=== PATIENT | female | born 1965 | race Two or more races ===

== ENCOUNTER 2024-08-08 05:33 | Day surgery (SDC) | payer OTHER ==
[2024-08-01 10:16] VITALS: BP 156/90
[2024-08-01 10:59] LABS: URINE APPEARANCE Clear; URINE BILIRRUBIN Negative (NEGATIVE); URINE BLOOD Negative; URINE COLOR Yellow; URINE GLUCOSE Negative (NEGATIVE); URINE KETONE Negative (NEGATIVE); URINE LEUKOCYTE Negative; URINE NITRATE Negative; URINE PROTEIN Trace (NEGATIVE); URINE UROBILINOGEN 0.2 E.U./dl
[2024-08-01 11:01] LABS: HEMATOCRIT 40.6 % (36.0-45.00); MEAN CELL VOLUME 90.1 fL (80.00-100.00); MEAN CORPUSCULAR HGB CONC 34.4 g/dl (32.0-36.0); PLATELET COUNT 190 K/uL (150-450); RED BLOOD COUNT 4.51 M/uL (4.00-6.00); RED CELL DISTRIBUTION WIDTH 14.2 % (11.5-14.5)
[2024-08-01 11:04] LABS: URINE EPITHELIAL CELLS 19.7 uL (0.0-38.8); URINE WBC 5.8 uL (0.0-23.2)
[2024-08-01 11:20] LABS: URINE CAST 0.76 uL (0.0-1.40); URINE RBC 1.2 uL (0.0-20.8)
[2024-08-01 11:26] LABS: PARTIAL THROMBOPLASTIN TIME 28.7 SECONDS (22.0-34.0); PROTHROMBIN TIME 10.9 SECONDS (9.0-11.5)
[2024-08-01 11:53] LABS: BILIRUBIN TOTAL 0.55 mg/dL (0.3-1.2); CALCIUM 10.4 mg/dL (8.5-10.1); CREATININE SERUM 0.79 mg/dL (0.55-1.02); GFR 74.49; POTASSIUM 4.66 mEq/L (3.5-5.1)
[~2024-08-08] VITALS: Ht 162.6 cm; Wt 81.6 kg
[~2024-08-08 05:33] MED LIST: AMLODIPINE BESY10 MG PO; CARVEDILOL25 MG; DEPAKOTE ER500 MG PO; PROAIR RESPICL90 MCG IH; SEROQUEL25 MG PO
[2024-08-08] MEDS ORDERED: PIPERACILLIN/TAZOBACTAM SODIUM 3.375 GM VIAL IV ONE ×2 (12:30→14:15)
[2024-08-08] MEDS ORDERED: DIBUCAINE 15 GM OINT..GM. TUBE RECTAL ONE (12:30)
[2024-08-08] MEDS ORDERED: HEMOSTATIC MATRIX 1 KIT KIT TOP ONE (12:30)
[2024-08-08] MEDS ORDERED: BUPIVACAINE HCL 30 ML VIAL IJ ONE (12:30)
[2024-08-08] MEDS ORDERED: LIDOCAINE HCL 1%/EPINEPHRINE 20ML VIAL IJ ONE (12:30)
[2024-08-08] MEDS ORDERED: POVIDONE-IODINE 118 ML BOTT TOP ONE (12:30)
[2024-08-08] MEDS ORDERED: MORPHINE SULFATE 4 MG/ML VIAL IV ONE (16:20)
== END 2024-08-08 16:55 | disposition home or self-care (01) ==
LOC: CIR.AMB 05:33
PROVIDERS: ATTEND Colon & Rectal Surgery
DX: K60.1 Chronic anal fissure (principal); K92.2 Gastrointestinal hemorrhage, unspecified; K62.4 Stenosis of anus and rectum; I10 Essential (primary) hypertension; J45.909 Unspecified asthma, uncomplicated; G40.909 Epilepsy, unspecified, not intractable, without status epilepticus

== ENCOUNTER → 2025-09-05 | Day surgery (SDC) | payer OTHER ==
[~2025-09-05] MED LIST changes: +BUPIVACAINE HCL/MPF 0.5% 30ML VIAL ONE; +CEFTRIAXONE SODIUM 2,000 MG VIAL ONE; +DIBUCAINE 30 GM TUBE ONE; +EFFEXOR XR37.5 MG PO; +HEMOSTATIC MATRIX 1 KIT KIT TOP ONE; +LEVOTHYROXINE25 MCG PO; +LIDOCAINE HCL 1%/EPINEPHRINE 20ML VIAL IJ ONE; +METRONIDAZOLE/SODIUM CHLORIDE 500 MG/100 ML PIGGYBACK IV ONE; +OMEPRAZOLE-BIC1 EAC1 PO; +PEPCID AC20 MG PO; +POVIDONE-IODINE SCRUB 118 ML BOTT TOP ONE
== END | disposition home or self-care (01) ==
LOC: ADM 08-29 11:45 → CIR.AMB 07:00
PROVIDERS: ATTEND Colon & Rectal Surgery
DX: C7A.026 Malignant carcinoid tumor of the rectum (principal); C7A.1 Malignant poorly differentiated neuroendocrine tumors; K64.2 Third degree hemorrhoids; K62.4 Stenosis of anus and rectum

== ENCOUNTER 2025-10-17 11:00 | Day surgery (SDC) | payer OTHER ==
[2025-10-12 10:49] LABS: BASO % 0.8 % (0.1-1.2); EOS # 0.20 (0.04-0.54); EOS % 3.4 % (0.7-7.0); LYMPH # 2.21 (1.18-3.74); LYMPH % 37.5 % (19.3-53.1); MEAN PLATELET VOLUME 9.60 fl (9.4-12.4); MONO # 0.40 (0.24-0.82); MONO % 6.8 % (4.7-12.5); NEUT # 3.02 (1.56-6.13); NEUT % 51.2 % (34.0-71.1); RED CELL DISTRIBUTION WIDTH 12.0 % (11.6-14.4)
[2025-10-12 11:13] LABS: COL EPI 101 SECONDS (82-175)
[2025-10-12 11:22] LABS: INR 1.02
[2025-10-12 11:30] LABS: ALT/SGPT 24.0 U/L (12-78); AST/SGOT 11.0 U/L (15-37); BILIRUBIN TOTAL 0.76 mg/dL (0.3-1.2); BUN CREA RATIO 19.0 (7.0-25.0); CREATININE SERUM 0.73 mg/dL (0.55-1.02); GFR 81.32; GLOBULINA 3.6 G/DL (2.4-3.5); GLUCOSE FASTING 86.0 mg/dL (65-100); OSMOLALITY SERUM 285.0 MOSM/KG (275-295)
[2025-10-12 12:32] LABS: URINE APPEARANCE Cloudy; URINE BILIRRUBIN Negative (NEGATIVE); URINE BLOOD Negative; URINE COLOR Yellow; URINE GLUCOSE Negative (NEGATIVE); URINE KETONE Trace (NEGATIVE); URINE LEUKOCYTE Trace; URINE NITRATE Negative; URINE PROTEIN Trace (NEGATIVE); URINE UROBILINOGEN 0.2 E.U./dl
[2025-10-12 12:36] LABS: URINE EPITHELIAL CELLS 136.9 uL (0.0-38.8); URINE WBC 127.5 uL (0.0-23.2)
[2025-10-12 12:37] LABS: URINE CAST 0.56 uL (0.0-1.40); URINE RBC 1.2 uL (0.0-20.8)
[~2025-10-17 11:00] MED LIST changes: -BUPIVACAINE HCL/MPF 0.5% 30ML VIAL ONE; -CEFTRIAXONE SODIUM 2,000 MG VIAL ONE; -DIBUCAINE 30 GM TUBE ONE; -HEMOSTATIC MATRIX 1 KIT KIT TOP ONE; -LIDOCAINE HCL 1%/EPINEPHRINE 20ML VIAL IJ ONE; -METRONIDAZOLE/SODIUM CHLORIDE 500 MG/100 ML PIGGYBACK IV ONE; -POVIDONE-IODINE SCRUB 118 ML BOTT TOP ONE
[2025-10-17] MEDS ORDERED: CEFAZOLIN SODIUM 1,000 MG VIAL ONE (12:01)
[2025-10-17] MEDS ORDERED: HEPARIN SODIUM,PORCINE 500 UNITS/5 ML VIAL IV ONE (14:45)
== END 2025-10-17 16:05 | disposition home or self-care (01) ==
LOC: CIR.AMB 11:00
PROVIDERS: ATTEND Colon & Rectal Surgery
DX: C20 Malignant neoplasm of rectum (principal)
CPT/HCPCS: 36561; C1751